=== PATIENT | male | born 1940 | race Caucasian/White ===

== ENCOUNTER 2021-10-17 13:59 | Emergency (ER) | payer MEDICARE ==
[2021-10-17] MEDS ORDERED: AMOX TR-K CLV1 EAC4 PO (16:12)
== END 2021-10-17 16:30 | disposition home or self-care (01) ==
LOC: ER1 13:59
DX: S61.211A Laceration without foreign body of left index finger without damage to nail, initial encounter (principal); Z23 Encounter for immunization; I10 Essential (primary) hypertension; E11.9 Type 2 diabetes mellitus without complications; W26.8XXA Contact with other sharp object(s), not elsewhere classified, initial encounter; Y92.009 Unspecified place in unspecified non-institutional (private) residence as the place of occurrence of the external cause
CPT/HCPCS: 12001; 73130; 90471; 90715; 99283